=== PATIENT | male | born 1965 | race Caucasian/White ===

== ENCOUNTER 2018-06-13 11:59 | Day surgery (SDC) | payer SELFPAY ==
[~2018-06-13] VITALS: Ht 175.3 cm; Wt 67.0 kg
[2018-06-13] VITALS (8 sets, daily range): BP systolic 127–177; BP diastolic 85–103; PULSE 72–108; TEMP 98.5–98.7
[~2018-06-13 11:59] MED LIST: ATIVAN 1MG T1 MG/TAB PO; MINIPRESS2 MG; MOBIC15 MG PO; NORCO 325 MG-51 TAB PO; PERCOCET 325 MG1 TA2 PO
[2018-06-13] MEDS ORDERED: ULTRAM 50MG TAB50 MG PO (13:59)
== END 2018-06-13 18:00 | disposition home or self-care (01) ==
LOC: SDCO 11:59
DX: K83.1 Obstruction of bile duct (principal); K83.8 Other specified diseases of biliary tract; R94.5 Abnormal results of liver function studies; R93.3 Abnormal findings on diagnostic imaging of other parts of digestive tract; F41.9 Anxiety disorder, unspecified; G47.30 Sleep apnea, unspecified
CPT/HCPCS: C1769; C2625; J2405; J2704; J3010; J7030; Q9967

== ENCOUNTER 2018-07-27 08:43 | Day surgery (SDC) | payer SELFPAY ==
[~2018-07-27] VITALS: Ht 175.3 cm; Wt 67.2 kg
[~2018-07-27 08:43] MED LIST changes: +ULTRAM 50MG TAB50 MG PO
[2018-07-27 09:14] VITALS: BP 140/90; PULSE 93; TEMP 98.3
[2018-07-27 11:10] VITALS: BP 142/78; PULSE 101; TEMP 97.8
--- NOTE | 2018-07-27 11:10 | NUR ---
to [facility] via cart from [facility] room. pt walked to chair, has occasional cough. takes juice, call light in reach. No c/o
[2018-07-27 11:25] VITALS: BP 131/87; PULSE 96
[2018-07-27 11:40] VITALS: BP 130/88; PULSE 92
[2018-07-27 12:00] VITALS: BP 122/83; PULSE 99
--- NOTE | 2018-07-27 12:00 | NUR ---
pt con't same, rests in recliner, no c/o
[2018-07-27 12:30] VITALS: BP 122/82; PULSE 99
--- NOTE | 2018-07-27 12:30 | NUR ---
no requests, rests in recliner
--- NOTE | 2018-07-27 13:19 | NUR ---
pt up to b/r, IV d'cd intact, pt up in room dressed
--- NOTE | 2018-07-27 13:35 | NUR ---
pt on phone, states called his primary Dr at [facility] for a Rx for percocet, states would have to be seen by 4pm, reviewed discharge inst. with pt due to sedation and not driving today, and staying on liquids for 4 hours, pt states increase epigastric, rates it at 10/. Called to endo lab, spoke with nurse, states Dr Antoine will not give Rx for percocet, may need to be seen in ER
--- NOTE | 2018-07-27 13:45 | NUR ---
pt bent over in pain, started coughing then crying, states "I will go to ER" Called to endo lab, spoke with nurse, to tell Dr Antoine stated I was taking pt to ER via w/c due to his pain and pt being discharged. 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 Pt con't to say pain is at 10/10 in epigastric area, stated earlier tramadol does not help his pain only percocet, reported this to ER nurse
[2018-07-28] MEDS ORDERED: DUO-KAPS1 CAP PO (17:48)
[2018-07-28] MEDS ORDERED: NORCO 325 MG-51 TAB PO (17:48)
[2018-07-28] MEDS ORDERED: PROTONIX20 MG PO (17:48)
[2018-07-28] MEDS ORDERED: THIAMINE 1100 MG/TAB PO (17:48)
[2018-07-28] MEDS ORDERED: FOLIC ACID 11 MG/TA1 PO (17:48)
[2018-07-28] MEDS ORDERED: ULTRAM 50MG TAB50 MG PO (18:03)
== END 2018-07-27 13:30 | disposition home or self-care (01) ==
LOC: SDCO 08:43
DX: K83.8 Other specified diseases of biliary tract (principal); K31.9 Disease of stomach and duodenum, unspecified; K59.00 Constipation, unspecified; R53.82 Chronic fatigue, unspecified; K82.8 Other specified diseases of gallbladder; K83.1 Obstruction of bile duct; R74.8 Abnormal levels of other serum enzymes; R63.0 Anorexia; G47.33 Obstructive sleep apnea (adult) (pediatric); G89.29 Other chronic pain; F41.9 Anxiety disorder, unspecified; Z87.891 Personal history of nicotine dependence
CPT/HCPCS: C1769; J2704; J3010; Q9967

== ENCOUNTER 2018-07-27 13:53 | Inpatient (IN) | payer SELFPAY ==
[~2018-07-27] VITALS: Ht 170.2 cm; Wt 65.5 kg
[2018-07-27 14:53] LABS: BASO % 0.4 % (0.0-2.0); EOS # 0.1 (0.0-0.7); GRAN # 4.6 (1.4-6.5); GRAN % 66.5 % (42.2-75.2); HEMATOCRIT 38.5 % (42.0-52.0); HEMOGLOBIN 13.2 g/dl (13.5-18.0); LYMPH # 1.3 (1.2-3.4); LYMPH % 18.1 % (20.0-51.0); MEAN CELL VOLUME 87 fl (80.0-100.0); MEAN CORPUSCULAR HEMOGLOBIN 30 pg (27.0-31.0); MEAN CORPUSCULAR HGB CONC 34 g/dl (33.0-37.0); MEAN PLATELET VOLUME 11.1 fl (7.4-10.4); MONO # 0.9 (0.1-0.6); MONO % 13.4 % (1.7-9.3); PLATELET COUNT 213 K/mm3 (130-400); RED BLOOD COUNT 4.43 M/mm3 (4.20-5.60); REDCELL DISTRIBUTION WIDTH-CV 12.8 % (11.5-14.5)
[2018-07-27 15:02] LABS: ALBUMIN 4.4 gm/dL (3.5-5.0); BILIRUBIN,TOTAL 1.9 mg/dL (0.0-1.0); CALCIUM 9.8 mg/dL (8.4-10.2); CREATININE, serum 0.78 (0.66-1.25); POTASSIUM 4.3 mmol/L (3.4-5.0)
[2018-07-27 15:23] LABS: TROPONIN-I 0.052 ng/mL (0.000-0.035)
--- NOTE | 2018-07-27 16:50 | NUR ---
arrived on unit per WC and assited into gown and into bed
--- NOTE | 2018-07-27 17:15 | NUR ---
admission assessment completed, see intervention for further info, assisted up to bathroom and voided large amount, then back to bed
--- NOTE | 2018-07-27 17:40 | NUR ---
medicated with scheduled routine dose of ativan 1mg, also given GI cocktail, he asks for something for pain but encouraged him to try these 2 things first, he doesn't think either one will help, informed him I would be back to check on him to see if either of these meds help,
[2018-07-27 18:00] VITALS: BP 137/78; PULSE 77; TEMP 98.9
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
--- NOTE | 2018-07-27 19:07 | NUR ---
bedside shift report given to CHRISTIANO Contreras
[2018-07-27 19:22] VITALS: BP 128/71; PULSE 76; TEMP 98.6
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
[2018-07-28] VITALS: BP 143/80; PULSE 74; TEMP 97.8
--- NOTE | 2018-07-28 01:05 | NUR ---
Pt ambulated to bathroom. States that he isn't "feeling good". UA collected. Urine is clear, elieser. While on toilet pt calls out that he is going to throw up. Pt dry heaving, but no emesis noted. PRN Zofran administered.
--- NOTE | 2018-07-28 01:15 | NUR ---
Pt back to bed. Reports relief of nausea with Zofran asministration, but now states he feels like he is "in an earthquake". States that the bed is shaking when he looks at it. Pt denies pain. VSS.
[2018-07-28 01:24] LABS: MUCOUS Present /lpf; PH 5 (5-8); SQUAMOUS EPITHELIAL 0-2 /hpf; TRICYCLIC ANTIDEPRESS URINE NEGATIVE; URINE APPEARANCE Clear; URINE BACTERIA None Seen /hpf; URINE BILIRUBIN Negative (NEGATIVE); URINE BLOOD Negative (NEGATIVE); URINE COLOR Yellow; URINE GLUCOSE Negative (NEGATIVE); URINE KETONE 2+ (NEGATIVE); URINE LEUKOCYTE ESTERASE Negative (NEGATIVE); URINE NITRATE Negative (NEGATIVE); URINE PROTEIN(semi-quant) Negative (NEGATIVE); URINE RBC 0-2 /hpf; URINE UROBILINOGEN Negative (NEGATIVE)
--- NOTE | 2018-07-28 01:30 | NUR ---
Alka SEBASTIAN contacted about pts condition. Orders recieved to start withdrawal protocol. Pt denies alcohol use, but is scoring a 6 on the CIWA.
[2018-07-28 01:53] LABS: COLLECTION METHOD CLEAN CATCH
[2018-07-28 04:00] VITALS: BP 147/88; PULSE 78
--- NOTE | 2018-07-28 05:10 | NUR ---
Pt scoring 5 on detox scale. Pt still having bouts of nausea and dry heaves with dizziness and visual disturbances. PRN medication administered per protocol.
--- NOTE | 2018-07-28 06:22 | NUR ---
Pt c/o nausea this AM. PRN Zofran administered. Pt reports pain, but denies need for pain medication at this time. Pt did not sleep much last night.
[2018-07-28 07:46] LABS: BASO % 0.1 % (0.0-2.0); EOS # 0.1 (0.0-0.7); EOS % 1.5 % (0-4.0); GRAN # 6.2 (1.4-6.5); GRAN % 79.5 % (42.2-75.2); HEMOGLOBIN 12.2 g/dl (13.5-18.0); LYMPH # 0.7 (1.2-3.4); LYMPH % 8.3 % (20.0-51.0); MEAN CELL VOLUME 87 fl (80.0-100.0); MEAN CORPUSCULAR HEMOGLOBIN 30 pg (27.0-31.0); MEAN CORPUSCULAR HGB CONC 34 g/dl (33.0-37.0); MEAN PLATELET VOLUME 11.4 fl (7.4-10.4); MONO # 0.8 (0.1-0.6); MONO % 10.1 % (1.7-9.3); PLATELET COUNT 205 K/mm3 (130-400); RED BLOOD COUNT 4.08 M/mm3 (4.20-5.60); REDCELL DISTRIBUTION WIDTH-CV 12.7 % (11.5-14.5)
[2018-07-28 07:47] LABS: HEMATOCRIT 35.6 % (42.0-52.0)
[2018-07-28 08:00] VITALS: BP 157/81; PULSE 104; TEMP 98.4
[2018-07-28 08:07] LABS: ALANINE AMINOTRANSFERASE 14 U/L (21-72); ALBUMIN 3.8 gm/dL (3.5-5.0); ALKALINE PHOSPHATASE 28 U/L (50-136); ANION GAP 11 mmol/L (7-16); AST,SGOT 26 U/L (15-37); BILIRUBIN,TOTAL 1.5 mg/dL (0.0-1.0); BLOOD UREA NITROGEN 17 mg/dL (9-20); CARBON DIOXIDE 22 mmol/L (22-30); CHLORIDE 102 mmol/L (98-107); CHOLESTEROL 107 mg/dL (120-200); CHOLESTEROL RISK RATIO 1.7; CREATININE, serum 0.73 (0.66-1.25); GLUCOSE 79 mg/dL (74-106); HDL CHOLESTEROL 62 mg/dL; LDL CHOLESTEROL 39 mg/dL; LIPASE 26 U/L (23-300); POTASSIUM 3.8 mmol/L (3.4-5.0); SODIUM 135 mmol/L (137-145); TOTAL PROTEIN 6.9 gm/dL (6.4-8.2); TRIGLYCERIDE 29 mg/dL
[2018-07-28 08:14] LABS: TROPONIN-I < 0.012 ng/mL (0.000-0.035)
[2018-07-28 10:20] VITALS: BP 144/70; PULSE 86; TEMP 98.5
--- NOTE | 2018-07-28 11:49 | NUR ---
Visited, provided spiritual care, and prayed with the patient.
[2018-07-28 11:52] VITALS: BP 147/81; PULSE 79; TEMP 97.4
--- NOTE | 2018-07-28 12:10 | NUR ---
Pt alert and oriented. Pt began vomitting and feeling like going to have diarrhea with small amount noted in stool at beginning of shift. Pt scored 9 on detox scale. Pt very agitated, tremors noted and complained of pain in his right abdomen. Pt given PRN medications and able to get on top of nausea/pain/and detox. Pt scored 4 on detox at next check and given PRN Ativan as ordered. Pt refused to take PO medication this am because of stomach pain. Pt also adamently refused the GI cocktail as he states it was what he thinks started all his stomach pain. Pt hospitalist updated. Pt requested apple juice and broth for lunch after PRN ATivan was given. Pt on fall precautions and has call light in reach and within view of nurse station.
--- NOTE | 2018-07-28 12:55 | NUR ---
Pt resting in bed with eyes closed. Easily aroused and alert. Pt rates pain 2/10 in right abdomen and slight nausea. Pt was able to eat little jello and some broth and going to keep tray to see if wants more. Pt has call light in reach and denies needs at this time.
[2018-07-28 15:58] VITALS: BP 133/88; PULSE 98; TEMP 98.5
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
[2018-07-28] MEDS ORDERED: FOLIC ACID 11 MG/TA1 PO (17:48)
[2018-07-28] MEDS ORDERED: DUO-KAPS1 CAP PO (17:48)
[2018-07-28] MEDS ORDERED: NORCO 325 MG-51 TAB PO (17:48)
[2018-07-28] MEDS ORDERED: PROTONIX20 MG PO (17:48)
[2018-07-28] MEDS ORDERED: THIAMINE 1100 MG/TAB PO (17:48)
[2018-07-28] MEDS ORDERED: ULTRAM 50MG TAB50 MG PO (18:03)
--- NOTE | 2018-07-28 19:23 | NUR ---
Pt given discharge instructions and education. Pt requested pain pill before discharging to home for abdominal pain. Pt has script for tramadol in and discharge instructions and appts. Pt upset with discharge as he still has abdominal pain. Pt requested Percocet but Dr. Jay prescribed Ultram. Pt ordered regular diet food before leaving and tolerated without N/V. Pt IV discontinued and telemetry discontinued. Pt called for a ride home. Pt report given to Johanna ALVARADO regarding discharge status.
== END 2018-07-28 19:27 | disposition home or self-care (01) | DRG 391 ==
LOC: COL.ER 13:53 → MEDICAL 16:10
PROVIDERS: Physician Assistant; ADMIT Internal Medicine
DX: R10.11 Right upper quadrant pain (principal); E43 Unspecified severe protein-calorie malnutrition; R74.8 Abnormal levels of other serum enzymes; E80.6 Other disorders of bilirubin metabolism; K46.9 Unspecified abdominal hernia without obstruction or gangrene
CPT/HCPCS: OP; 99222-AI; J1650; J1885; J2060; J2405; J2550

== ENCOUNTER → 2021-06-21 | Outpatient (CLI) | payer MEDICAID ==
[~2021-06-21] MED LIST changes: +DUO-KAPS1 CAP PO; +FOLIC ACID 11 MG/TA1 PO; +PROTONIX20 MG PO; +THIAMINE 1100 MG/TAB PO
== END ==
LOC: COL.RAD 13:31
DX: M25.511 Pain in right shoulder (principal)
CPT/HCPCS: J3301